=== PATIENT | male | born 1950 | race Caucasian/White ===

== ENCOUNTER 2023-01-21 13:44 | Outpatient (CLI) | payer MEDICARE, OTHER, SELFPAY ==
--- NOTE | 2023-01-21 14:10 | USCV_ITS ---
Christiano Hart Age: 72 Gender: M : 1950 Exam Date: 01/21/2023 14:40 Ordering Phys: Delmar Maurer MD Technologist: [place] Exam Location: [facility] [place] Indication: HTN, CHRONIC A FIB, MOD BP: 136 / 75 HR: 66 Rhythm: Sinus Technical Quality: Technically difficult study MEASUREMENTS (Male / Female) Normal Values 2D ECHO LVOT Diameter 2.0 cm LV Ejection Fraction MOD 2C 65.7 % LV Ejection Fraction 2C AL 67.8 % LA Diameter 3.5 cm LA Width 4.3 cm LA Height 6.8 cm RA Width 5.0 cm RA Height 6.6 cm Aorta at Sinotubular Diameter 3.0 cm IVC Diameter 2.0 cm M-MODE Aortic Annulus Diameter 3.5 cm LA Ao Ratio MM 0.9 MV E Point Septal Separation 1.2 cm DOPPLER AV Peak Velocity 463.5 cm/s LVOT Peak Velocity 106.0 cm/s AV Area Cont Eq vti 0.6 cm squared AV Area Cont Eq pk 0.7 cm squared MV Peak Velocity 101.0 cm/s MV Area PHT 3.5 cm squared Mitral E to A Ratio 2.6 MV E' Velocity 49.0 cm/s Mitral E to MV E' Ratio 6.5 Mitral E to LV E' Lateral Ratio 6.0 Mitral E to LV E' Septal Ratio 7.2 TR Peak Velocity 192.8 cm/s TR Peak Gradient 14.9 mmHg TR Mean Velocity 150.1 cm/s TR Mean Gradient 9.7 mmHg TR Velocity Time Integral 47.5 cm TV Peak E Velocity 44.0 cm/s Right Atrial Pressure 3.0 mmHg Pulmonary Artery Systolic Pressu 17.9 mmHg PV Peak Velocity 88.0 cm/s RV Acceleration Time 0.1 s RV Ejection Time 0.3 s RV AcT/ET 0.4 FINDINGS Left Ventricle Normal left ventricular size and systolic function, EF 67 %. No regional wall motion abnormalities. Right Ventricle The right ventricle is normal in size and function. Right Atrium Mildly increased right atrial size. Left Atrium Mildly increased left atrial size. Mitral Valve Trace mitral valve regurgitation. Aortic Valve Severe aortic valve stenosis, mean gradient 59 mmHg, NAZANIN 0.59 cm squared. Peak velocity of 4.8 m/s with a peak gradient of 91 mmHg. Tricuspid Valve No gross abnormalities noted Pulmonic Valve Pulmonic valve not well visualized. Pericardium No pericardial effusion. Aorta Normal aortic annulus size. IVC Normal inferior vena cava. CONCLUSIONS Normal left ventricular size and systolic function, EF 67 %. No regional wall motion abnormalities. Severe aortic valve stenosis, mean gradient 59 mmHg, NAZANIN 0.59 cm squared. Peak velocity of 4.8 m/s with a peak gradient of 91 mmHg. Mildly increased left atrial size. Trace mitral valve regurgitation. There is no pericardial effusion. There are no intracardiac masses. No similar previous studies are available for comparison. Dr Gustavo Murphy MD FACC (Electronically Signed) Final Date: 27 January 2023 09:30 S
== END 2023-01-21 13:45 | disposition home or self-care (01) ==
PROVIDERS: PCP Registered Nurse; Visit Provider Internal Medicine Cardiovascular Disease
DX: I10 Essential (primary) hypertension (principal); I48.91 Unspecified atrial fibrillation; I08.0 Rheumatic disorders of both mitral and aortic valves
CPT/HCPCS: 93306